=== PATIENT | female | born 1960 | race Caucasian/White ===

== ENCOUNTER → 2017-03-05 | Outpatient (CLI) | payer MEDICAID | END | disposition home or self-care (01) | LOC: CFH 13:54 | PROVIDERS: ATTEND Internal Medicine Critical Care Medicine | DX: J96.11 Chronic respiratory failure with hypoxia (principal); J84.10 Pulmonary fibrosis, unspecified; E07.9 Disorder of thyroid, unspecified; Z90.49 Acquired absence of other specified parts of digestive tract | CPT/HCPCS: 71250 ==

== ENCOUNTER → 2017-07-08 | Outpatient (CLI) | payer MEDICAID ==
[~2017-07-08] MED LIST: REGADENOSON 0.4 MG/5 ML SYRINGE ONE
== END | disposition home or self-care (01) ==
LOC: CVU 10:28
PROVIDERS: ATTEND Internal Medicine Cardiovascular Disease
DX: R07.89 Other chest pain (principal); I51.7 Cardiomegaly; E11.9 Type 2 diabetes mellitus without complications; E78.5 Hyperlipidemia, unspecified; I10 Essential (primary) hypertension; Z87.891 Personal history of nicotine dependence
CPT/HCPCS: 78452; 93017; 93306; A9502; J2785

== ENCOUNTER 2018-03-31 14:19 | Emergency (ER) | payer MEDICAID ==
[~2018-03-31] VITALS: Ht 167.6 cm; Wt 143.7 kg
[2018-03-31 14:35] VITALS: BP 114/57
[2018-03-31] MEDS ORDERED: KETOROLAC 30 MG/1 ML IM ONE (15:00)
[2018-03-31] MEDS ORDERED: KETOROLAC 30 MG/1 ML ONE (15:27)
== END 2018-03-31 15:36 | disposition home or self-care (01) ==
LOC: ED 15:25
DX: M77.9 Enthesopathy, unspecified (principal); J44.9 Chronic obstructive pulmonary disease, unspecified; E11.9 Type 2 diabetes mellitus without complications
CPT/HCPCS: 29125; 73130; 96372; 99284; J1885

== ENCOUNTER → 2018-09-29 | Outpatient (CLI) | payer MEDICAID | END | disposition home or self-care (01) | LOC: CFH 11:35 | PROVIDERS: ATTEND Nurse Practitioner Family | DX: Z12.2 Encounter for screening for malignant neoplasm of respiratory organs (principal); J44.9 Chronic obstructive pulmonary disease, unspecified; F17.200 Nicotine dependence, unspecified, uncomplicated | CPT/HCPCS: G0297 ==

== ENCOUNTER 2019-06-28 06:59 | Emergency (ER) | payer MEDICAID ==
[~2019-06-28] VITALS: Ht 167.6 cm; Wt 119.8 kg
[2019-06-28 07:19] VITALS: BP 128/86
[2019-06-28 08:07] LABS: RAPID INFLUENZA A Negative (Negative); RAPID INFLUENZA B Negative (Negative)
[2019-06-28] MEDS ORDERED: ACETAMINOPHEN 500 MG TABLET PO ONE (08:30)
[2019-06-28 08:38] LABS: BASOPHILS # (AUTO) 0.01 x10^3/uL (0-0.1); BASOPHILS % (AUTO) 0 % (0-1); EOSINOPHILS # (AUTO) 0.04 x10^3/uL (0-0.4); EOSINOPHILS % (AUTO) 0 % (1-7); LYMPHOCYTES # (AUTO) 0.71 x10^3/uL (1-3.4); LYMPHOCYTES % (AUTO) 8 % (22-44); MD NO; MEAN CORPUSCULAR HEMOGLOBIN 32.4 pg (27.0-34.8); MEAN CORPUSCULAR HGB CONC 33.3 g/dL (32.4-35.8); MEAN CORPUSCULAR VOLUME 97.4 fL (80-100); MEAN PLATELET VOLUME 7.7 fL (7.4-10.4); MONOCYTES # (AUTO) 0.66 x10^3/uL (0.2-0.8); MONOCYTES % (AUTO) 7 % (2-9); NEUTROPHILS # (AUTO) 8.04 x10^3/uL (1.8-6.8); NEUTROPHILS % (AUTO) 85 % (42-75); PLATELET COUNT 174 x10^3/uL (130-400); RED BLOOD COUNT 4.37 x10^6/uL (3.82-5.3); RED CELL DISTRIBUTION WIDTH 14.1 % (9.6-15.2)
[2019-06-28] MEDS ORDERED: ACETAMINOPHEN 500 MG TABLET ONE (08:39)
[2019-06-28] MEDS ORDERED: AZITHROMYCIN 500 MG TABLET ONE (08:45)
[2019-06-28] MEDS ORDERED: CEFTRIAXONE 1,000 MG ONE (08:46)
[2019-06-28 08:47] LABS: ALBUMIN 3.3 g/dL (3.4-5.0); ANION GAP 8 mmol/L (5-15); CALCIUM 8.7 mg/dL (8.5-10.1); CHLORIDE 103 mmol/L (98-107)
[2019-06-28] MEDS ORDERED: CEFTRIAXONE 1,000 MG IM ONE (09:00)
[2019-06-28] MEDS ORDERED: AZITHROMYCIN 500 MG TABLET PO ONE (09:00)
[2019-06-28] MEDS ORDERED: ALBUTEROL/IPRATROPIUM 2.5MG/0.5MG, 3 ML ONE (09:16)
[2019-06-28] MEDS: ALBUTEROL/IPRATROPIUM 2.5MG/0.5MG, 3 ML NPPB SCH ×2 (09:18→09:19)
== END 2019-06-28 11:09 | disposition home or self-care (01) ==
LOC: ED 09:38
DX: J44.1 Chronic obstructive pulmonary disease with (acute) exacerbation (principal); J15.9 Unspecified bacterial pneumonia; M25.561 Pain in right knee; R50.9 Fever, unspecified; F17.210 Nicotine dependence, cigarettes, uncomplicated
CPT/HCPCS: 29505; 36415; 71046; 73564; 80048; 82040; 83605; 85025; 87400; 94640; 96372; 96374; 99284; J0696; J7620

== ENCOUNTER 2019-12-19 13:10 | Inpatient (IN) | payer MEDICAID ==
[~2019-12-19] VITALS: Ht 170.2 cm; Wt 128.7 kg
--- NOTE | 2019-12-19 13:40 | NUR ---
THIS RN AT BEDSIDE WITH MD FOR PT ASSESSMENT.
--- NOTE | 2019-12-19 13:58 | NUR ---
PIV PLACED, LABS AND 1 SET BLOOD CX DRAWN AND COLLECTED BY MANAGER PET. SECOND SET BLOOD CX COLLECTED BY MANAGER PET.
[2019-12-19] MEDS ORDERED: PIPERACILLIN/TAZO/PMX 3.375GM 50 ML ONE (13:59)
[2019-12-19] MEDS ORDERED: VANCOMYCIN PER PHARMACY MC ONE (14:00)
[2019-12-19] MEDS ORDERED: SODIUM CHLORIDE FLUSH 10ML SYR IVF ONE (14:00)
[2019-12-19] MEDS ORDERED: PIPERACILLIN/TAZO/PMX 3.375GM 50 ML IVPB ONE (14:00)
--- NOTE | 2019-12-19 14:02 | NUR ---
IV ABX ADMIN PER JUL. 2 SETS BLOOD CX COLLECTED PRIOR TO START.
[2019-12-19 14:13] LABS: BASOPHILS # (AUTO) 0.03 x10^3/uL (0-0.1); BASOPHILS % (AUTO) 0 % (0-1); EOSINOPHILS # (AUTO) 0.06 x10^3/uL (0-0.4); EOSINOPHILS % (AUTO) 1 % (1-7); LYMPHOCYTES # (AUTO) 1.51 x10^3/uL (1-3.4); LYMPHOCYTES % (AUTO) 19 % (22-44); MD NO; MEAN CORPUSCULAR HEMOGLOBIN 32.6 pg (27.0-34.8); MEAN CORPUSCULAR HGB CONC 33.6 g/dL (32.4-35.8); MEAN CORPUSCULAR VOLUME 97.1 fL (80-100); MEAN PLATELET VOLUME 8.1 fL (7.4-10.4); MONOCYTES # (AUTO) 0.54 x10^3/uL (0.2-0.8); MONOCYTES % (AUTO) 7 % (2-9); NEUTROPHILS # (AUTO) 5.61 x10^3/uL (1.8-6.8); NEUTROPHILS % (AUTO) 72 % (42-75); PLATELET COUNT 199 x10^3/uL (130-400); RED BLOOD COUNT 3.74 x10^6/uL (3.82-5.3); RED CELL DISTRIBUTION WIDTH 14.5 % (9.6-15.2)
--- NOTE | 2019-12-19 14:13 | NUR ---
US AT BEDSIDE.
[2019-12-19 14:20] LABS: ALBUMIN 3.4 g/dL (3.4-5.0); ANION GAP 4 mmol/L (5-15); CALCIUM 8.7 mg/dL (8.5-10.1); CHLORIDE 107 mmol/L (98-107); CREATININE 0.65 mg/dL (0.55-1.02)
[2019-12-19] MEDS ORDERED: VANCOMYCIN 2,500 MG in SODIUM CHLORIDE 0.9% 500 ML IV ONE (14:30)
--- NOTE | 2019-12-19 14:49 | NUR ---
DERIK STARTED PER JUL. PT RESTING COMFORTABLY ON GURNEY WATCHING TV. NADN. PT REFUSES BLANKET AT THIS TIME.
--- NOTE | 2019-12-19 15:04 | NUR ---
MD AT BEDSIDE TO UPDATE PT ON POC.
[2019-12-19] MEDS ORDERED: METF500T17 PO (15:16)
[2019-12-19] MEDS ORDERED: ESCI10TA PO (15:16)
[2019-12-19] MEDS ORDERED: ATORVASTATIN (15:16)
[2019-12-19] MEDS ORDERED: TRAZ150T62 PO (15:16)
[2019-12-19] MEDS ORDERED: ALPR0.25 PO (15:16)
--- NOTE | 2019-12-19 15:18 | NUR ---
HOSPITALIST AT BEDSIDE.
[2019-12-19] MEDS ORDERED: TRAZODONE 150MG TABLET PO PRN (15:30)
[2019-12-19] MEDS ORDERED: PIPERACILLIN/TAZO/PMX 3.375GM 50 ML IV SCH (15:30)
[2019-12-19] MEDS ORDERED: BUPROPION 100 MG TABLET PO SCH ×2 (15:30)
[2019-12-19] MEDS ORDERED: SODIUM CHLORIDE FLUSH 10ML SYR IVF PRN (15:30)
--- NOTE | 2019-12-19 15:37 | NUR ---
RELEASE SIGNED TO OBTAIN MED RECORDS FROM [employer] AND GIVEN TO CAR RIDER TO FAX REQUEST.
[2019-12-19] MEDS ORDERED: POLYETHYLENE GLYCOL 17 GM PACKET PO PRN (16:00)
[2019-12-19] MEDS ORDERED: BISACODYL 10 MG SUPP PR PRN (16:00)
[2019-12-19] MEDS ORDERED: VANCOMYCIN PER PHARMACY MC PRN (16:00)
[2019-12-19] MEDS: NICOTINE 7 MG/24 HR PATCH.TD24 TD SCH (16:00)
[2019-12-19] MEDS ORDERED: morphine SULFATE 10 MG/ML, 1ML IVPush PRN (16:00)
[2019-12-19] MEDS: LACTOBACILLUS CHEW TABLET PO SCH ×2 (16:00→20:21)
[2019-12-19] MEDS ORDERED: ONDANSETRON 2MG/ML, 2ML IVPush PRN (16:00)
[2019-12-19] MEDS: INSULIN LISPRO 100 UNITS/ML, PEN SQ-INSULIN SCH ×2 (16:00→20:20)
[2019-12-19] MEDS ORDERED: MELATONIN 5 MG TABLET PO PRN (16:00)
[2019-12-19] MEDS ORDERED: HYDROcodone/APAP 5/325 TABLET PO PRN (16:00)
[2019-12-19] MEDS ORDERED: ACETAMINOPHEN 325 MG TABLET PO PRN (16:00)
--- NOTE | 2019-12-19 16:08 | NUR ---
RECEIVED MEDICAL RECORDS, DATABASE REPORT WRITER PLACED FAX IN CHART. REDDENNED AREA OUTLINED ON LEFT BREAST.
--- NOTE | 2019-12-19 17:30 | NUR ---
REPORT GIVEN TO NAT BILLINGSLEY.
[2019-12-19 18:06] VITALS: BP 124/75
[2019-12-19] MEDS ORDERED: PHARMACOKINETIC CONSULTATION MC ONE (19:30)
[2019-12-19] MEDS ORDERED: PHARMACOKINETIC MONITORING MC PRN (19:30)
[2019-12-19] MEDS: ENOXAPARIN 40 MG/0.4 ML SQ SCH (19:51)
[2019-12-19] MEDS: AMPICILLIN/SULBACTAM 3 GM in SODIUM CHLORIDE 0.9% 100 ML IV SCH (19:52)
[2019-12-19] MEDS: metFORMIN 500 MG TABLET PO SCH (20:21)
[2019-12-19] MEDS: ATORVASTATIN 20 MG TABLET PO SCH (20:21)
[2019-12-19] MEDS: LORazepam 0.5MG TABLET PO PRN (20:21)
[2019-12-19] MEDS: VARENICLINE 1MG TABLET PO SCH (21:54)
[2019-12-20 01:22] VITALS: BP 138/82
[2019-12-20] MEDS: AMPICILLIN/SULBACTAM 3 GM in SODIUM CHLORIDE 0.9% 100 ML IV SCH ×3 (04:17→20:07)
[2019-12-20 04:31] LABS: BASOPHILS # (AUTO) 0.03 x10^3/uL (0-0.1); BASOPHILS % (AUTO) 0 % (0-1); EOSINOPHILS # (AUTO) 0.08 x10^3/uL (0-0.4); EOSINOPHILS % (AUTO) 1 % (1-7); LYMPHOCYTES # (AUTO) 1.35 x10^3/uL (1-3.4); LYMPHOCYTES % (AUTO) 19 % (22-44); MD NO; MEAN CORPUSCULAR HEMOGLOBIN 32.1 pg (27.0-34.8); MEAN CORPUSCULAR HGB CONC 32.8 g/dL (32.4-35.8); MEAN CORPUSCULAR VOLUME 98.1 fL (80-100); MEAN PLATELET VOLUME 8.1 fL (7.4-10.4); MONOCYTES # (AUTO) 0.65 x10^3/uL (0.2-0.8); MONOCYTES % (AUTO) 9 % (2-9); NEUTROPHILS % (AUTO) 71 % (42-75); PLATELET COUNT 179 x10^3/uL (130-400); RED BLOOD COUNT 3.58 x10^6/uL (3.82-5.3); RED CELL DISTRIBUTION WIDTH 14.8 % (9.6-15.2)
[2019-12-20 04:40] LABS: ANION GAP 4 mmol/L (5-15); CALCIUM 8.8 mg/dL (8.5-10.1); CHLORIDE 108 mmol/L (98-107)
[2019-12-20] MEDS: LACTOBACILLUS CHEW TABLET PO SCH ×4 (05:51→20:33)
[2019-12-20 07:41] VITALS: BP 117/80
[2019-12-20] MEDS: INSULIN LISPRO 100 UNITS/ML, PEN SQ-INSULIN SCH ×4 (08:18→21:00)
[2019-12-20] MEDS: ESCITALOPRAM 10MG TABLET PO SCH (08:32)
[2019-12-20] MEDS: VANCOMYCIN 2,500 MG in SODIUM CHLORIDE 0.9% 500 ML IV SCH (08:32)
[2019-12-20] MEDS: BUPROPION 100 MG TABLET PO SCH (08:33)
[2019-12-20] MEDS: VARENICLINE 1MG TABLET PO SCH ×2 (08:33→21:27)
[2019-12-20] MEDS: SENNA/DOCUSATE TABLET PO SCH (08:57)
[2019-12-20 12:10] VITALS: BP 116/80
[2019-12-20] MEDS: NICOTINE 7 MG/24 HR PATCH.TD24 TD SCH (16:37)
[2019-12-20] MEDS: ENOXAPARIN 40 MG/0.4 ML SQ SCH (16:38)
[2019-12-20] MEDS: ATORVASTATIN 20 MG TABLET PO SCH (20:33)
[2019-12-20] MEDS: metFORMIN 500 MG TABLET PO SCH (20:34)
[2019-12-20 20:38] VITALS: BP 129/80
[2019-12-21 01:38] VITALS: BP 115/75
[2019-12-21] MEDS: VANCOMYCIN 2,500 MG in SODIUM CHLORIDE 0.9% 500 ML IV SCH (01:54)
[2019-12-21] MEDS: AMPICILLIN/SULBACTAM 3 GM in SODIUM CHLORIDE 0.9% 100 ML IV SCH ×3 (04:38→19:53)
[2019-12-21 05:47] LABS: BASOPHILS # (AUTO) 0.03 x10^3/uL (0-0.1); BASOPHILS % (AUTO) 1 % (0-1); EOSINOPHILS # (AUTO) 0.06 x10^3/uL (0-0.4); EOSINOPHILS % (AUTO) 1 % (1-7); LYMPHOCYTES # (AUTO) 1.45 x10^3/uL (1-3.4); LYMPHOCYTES % (AUTO) 23 % (22-44); MD NO; MEAN CORPUSCULAR HEMOGLOBIN 32.1 pg (27.0-34.8); MEAN CORPUSCULAR HGB CONC 33.1 g/dL (32.4-35.8); MEAN CORPUSCULAR VOLUME 97.2 fL (80-100); MEAN PLATELET VOLUME 7.8 fL (7.4-10.4); MONOCYTES # (AUTO) 0.38 x10^3/uL (0.2-0.8); MONOCYTES % (AUTO) 6 % (2-9); NEUTROPHILS # (AUTO) 4.49 x10^3/uL (1.8-6.8); NEUTROPHILS % (AUTO) 70 % (42-75); PLATELET COUNT 184 x10^3/uL (130-400); RED BLOOD COUNT 3.73 x10^6/uL (3.82-5.3); RED CELL DISTRIBUTION WIDTH 14.7 % (9.6-15.2)
[2019-12-21] MEDS: LACTOBACILLUS CHEW TABLET PO SCH ×4 (06:06→21:07)
[2019-12-21] MEDS: INSULIN LISPRO 100 UNITS/ML, PEN SQ-INSULIN SCH ×4 (07:00→21:00)
[2019-12-21] MEDS: BUPROPION 100 MG TABLET PO SCH (07:33)
[2019-12-21] MEDS: ESCITALOPRAM 10MG TABLET PO SCH (07:33)
[2019-12-21] MEDS: VARENICLINE 1MG TABLET PO SCH ×2 (07:34→21:08)
[2019-12-21] MEDS: SENNA/DOCUSATE TABLET PO SCH (07:34)
[2019-12-21 07:58] VITALS: BP 124/78
[2019-12-21 13:47] VITALS: BP 118/75
[2019-12-21] MEDS: ENOXAPARIN 40 MG/0.4 ML SQ SCH (15:47)
[2019-12-21] MEDS: NICOTINE 7 MG/24 HR PATCH.TD24 TD SCH (16:00)
[2019-12-21 19:24] VITALS: BP 124/80
[2019-12-21] MEDS ORDERED: VANCOMYCIN 2,500 MG in SODIUM CHLORIDE 0.9% 500 ML IV SCH (20:00)
[2019-12-21] MEDS: metFORMIN 500 MG TABLET PO SCH (21:08)
[2019-12-21] MEDS: LORazepam 0.5MG TABLET PO PRN (21:08)
[2019-12-21] MEDS: ATORVASTATIN 20 MG TABLET PO SCH (21:08)
[2019-12-22 00:39] VITALS: BP 124/78
[2019-12-22] MEDS: AMPICILLIN/SULBACTAM 3 GM in SODIUM CHLORIDE 0.9% 100 ML IV SCH (04:09)
[2019-12-22] MEDS: LACTOBACILLUS CHEW TABLET PO SCH ×2 (05:01→11:04)
[2019-12-22] MEDS: INSULIN LISPRO 100 UNITS/ML, PEN SQ-INSULIN SCH ×2 (07:00→11:00)
[2019-12-22 07:50] VITALS: BP 132/80
[2019-12-22] MEDS: SENNA/DOCUSATE TABLET PO SCH (07:59)
[2019-12-22] MEDS: BUPROPION 100 MG TABLET PO SCH (07:59)
[2019-12-22] MEDS: VARENICLINE 1MG TABLET PO SCH (07:59)
[2019-12-22] MEDS: ESCITALOPRAM 10MG TABLET PO SCH (07:59)
[2019-12-22] MEDS ORDERED: DOXYCYCLINE 100MG CAP PO SCH (08:00)
[2019-12-22] MEDS ORDERED: AMOXICILLIN/CLAV 875-125MG TABLET PO SCH (08:00)
[2019-12-22] MEDS ORDERED: ACID1TAB7 PO (10:20)
[2019-12-22] MEDS ORDERED: AMOX1TAB12 PO (10:20)
[2019-12-22] MEDS ORDERED: CLOT45CR VG (10:20)
[2019-12-22] MEDS ORDERED: DOXY100C2 PO (10:20)
[2019-12-22] MEDS ORDERED: ONDA4TAB13 SL (10:20)
[2019-12-22] MEDS ORDERED: FLUC200T PO (10:20)
== END 2019-12-22 11:24 | disposition home or self-care (01) | DRG 600 ==
LOC: ED 14:02 → EDIP 15:06 → 3N 17:38 → DCLOUNGE 12-22 11:18
PROVIDERS: ADMIT Internal Medicine; ATTEND Internal Medicine
DX: N61.1 Abscess of the breast and nipple (principal); L03.313 Cellulitis of chest wall; J96.10 Chronic respiratory failure, unspecified whether with hypoxia or hypercapnia; Z68.41 Body mass index [BMI] 40.0-44.9, adult; J44.9 Chronic obstructive pulmonary disease, unspecified; J30.9 Allergic rhinitis, unspecified; F41.9 Anxiety disorder, unspecified; F17.200 Nicotine dependence, unspecified, uncomplicated; E66.9 Obesity, unspecified; E11.9 Type 2 diabetes mellitus without complications; I25.2 Old myocardial infarction; Z98.84 Bariatric surgery status; Z79.899 Other long term (current) drug therapy
CPT/HCPCS: 36415; 76642; 80048; 82040; 82962; 83036; 83605; 83735; 84145; 85025; 87040; 96365; 96366; 96368; 99285; G0378; J0295; J1650; J2543; J3370; J1815; J7040

== ENCOUNTER → 2020-01-13 | Outpatient (CLI) | payer MEDICAID ==
[~2020-01-13] MED LIST changes: +ACID1TAB7 PO; +ALPR0.25 PO; +AMOX1TAB12 PO; +ATORVASTATIN; +CLOT45CR VG; +DOXY100C2 PO; +ESCI10TA PO; +FLUC200T PO; +METF500T17 PO; +ONDA4TAB13 SL; -REGADENOSON 0.4 MG/5 ML SYRINGE ONE; +TRAZ150T62 PO
== END | disposition home or self-care (01) ==
LOC: CFH 12:13
PROVIDERS: ATTEND Internal Medicine
DX: N61.0 Mastitis without abscess (principal); N63.20 Unspecified lump in the left breast, unspecified quadrant
CPT/HCPCS: 76642; 77066; G0279

== ENCOUNTER 2020-05-29 19:24 | Emergency (ER) | payer MEDICAID ==
[~2020-05-29] VITALS: Ht 170.2 cm; Wt 131.0 kg
[~2020-05-29 19:24] MED LIST changes: -ESCI10TA PO; +ESCI10TA5 PO
--- NOTE | 2020-05-29 19:42 | NUR ---
Patient presents to ER c/o vag bleeding since this am. Patient c/o achiness in low back and feeling like she is "almost going to cramp," but doesn't have actual cramping. Patient states she has a swollen node in her right neck also. Denies fevers. Patient is in NAD. Respirations even and unlabored.
[2020-05-29 20:11] LABS: BASOPHILS % (AUTO) 1 % (0-1); EOSINOPHILS % (AUTO) 1 % (1-7); LYMPHOCYTES % (AUTO) 24 % (22-44); MD NO; MEAN CORPUSCULAR HEMOGLOBIN 32.6 pg (27.0-34.8); MEAN CORPUSCULAR HGB CONC 33.9 g/dL (32.4-35.8); MEAN PLATELET VOLUME 7.6 fL (7.4-10.4); MONOCYTES % (AUTO) 7 % (2-9); NEUTROPHILS % (AUTO) 68 % (42-75); PLATELET COUNT 208 x10^3/uL (130-400); RED BLOOD COUNT 3.84 x10^6/uL (3.82-5.3); RED CELL DISTRIBUTION WIDTH 14.2 % (9.6-15.2)
[2020-05-29 20:22] LABS: MICROSCOPIC AUTO
[2020-05-29 20:23] LABS: ALBUMIN 3.8 g/dL (3.4-5.0); ANION GAP 1 mmol/L (5-15); CHLORIDE 110 mmol/L (98-107); CREATININE 1.12 mg/dL (0.55-1.02)
[2020-05-29 22:00] VITALS: BP 140/58
--- NOTE | 2020-05-29 22:23 | NUR ---
Discharge instructions given. All questions and concerns addressed. Patient ambulatory with a steady gait. Belongings with patient.
== END 2020-05-29 22:26 | disposition home or self-care (01) ==
LOC: ED 21:23
DX: N93.9 Abnormal uterine and vaginal bleeding, unspecified (principal); D25.9 Leiomyoma of uterus, unspecified; I88.9 Nonspecific lymphadenitis, unspecified; N89.8 Other specified noninflammatory disorders of vagina
CPT/HCPCS: 36415; 76830; 80048; 81001; 82040; 84703; 85025; 87086; 99284

== ENCOUNTER → 2020-06-01 | Outpatient (CLI) | payer MEDICAID ==
[~2020-06-01] MED LIST changes: +ATOR20TA37 PO; +BUPR150T7 PO; +FLUT16SP24 NAS; +TIOT4MIS3 INH
== END | disposition home or self-care (01) ==
LOC: STAR 13:28
PROVIDERS: ATTEND Internal Medicine Geriatric Medicine
DX: Z01.812 Encounter for preprocedural laboratory examination (principal); Z20.828 Contact with and (suspected) exposure to other viral communicable diseases; Z86.010 Personal history of colon polyps
CPT/HCPCS: 87635; 93005

== ENCOUNTER 2020-06-07 09:23 | Day surgery (SDC) | payer MEDICAID ==
[~2020-06-07] VITALS: Ht 170.2 cm; Wt 127.7 kg
[2020-06-07 10:10] VITALS: BP 114/71
[2020-06-07] MEDS ORDERED: CHLORHEXIDINE 15 ML UDC MM ONE (10:30)
[2020-06-07] MEDS ORDERED: LACTATED RINGERS 1,000 ML IV SCH (10:30)
[2020-06-07] MEDS ORDERED: FENTANYL PF 100 MCG/2ML ONE (10:55)
[2020-06-07] MEDS ORDERED: PROPOFOL 10 MG/ML, 20ML ONE (11:01)
[2020-06-07] MEDS ORDERED: PHENYLEPHRINE 10 MG/ML ONE (11:01)
[2020-06-07] MEDS ORDERED: ONDANSETRON 2MG/ML, 2ML ONE ×2 (11:01→11:46)
[2020-06-07] MEDS ORDERED: LORazepam 2 MG/ML, 1ML IVPush PRN (11:30)
[2020-06-07] MEDS ORDERED: hydrALAzine 20 MG/ML, 1ML IV PRN (11:30)
[2020-06-07] MEDS ORDERED: EPHEDRINE 50 MG/ML, 1ML IVPush PRN (11:30)
[2020-06-07] MEDS ORDERED: HYDROmorphone 1 MG/ML, 1ML INJ IVPush PRN (11:30)
[2020-06-07] MEDS ORDERED: HALOPERIDOL 5 MG/ML IV PRN (11:30)
[2020-06-07] MEDS ORDERED: ACETAMINOPHEN 325 MG TABLET PO PRN (11:30)
[2020-06-07] MEDS ORDERED: ALBUTEROL/IPRATROPIUM 2.5MG/0.5MG, 3 ML NPPB PRN (11:30)
[2020-06-07] MEDS ORDERED: ONDANSETRON 2MG/ML, 2ML IVPush PRN (11:30)
[2020-06-07] MEDS ORDERED: OXYcodone 5 MG/5 ML ORAL.SOL UDC PO PRN (11:30)
[2020-06-07] MEDS ORDERED: FENTANYL PF 100 MCG/2ML IV PRN (11:30)
[2020-06-07] MEDS ORDERED: ALBUTEROL SULFATE 2.5 MG/3 ML NPPB PRN (11:30)
[2020-06-07] MEDS ORDERED: PROMETHAZINE 12.5 MG SUPP PR PRN (11:30)
[2020-06-07] MEDS ORDERED: LABETALOL 5MG/ML, 20ML IV PRN (11:30)
[2020-06-07] MEDS ORDERED: DIPHENHYDRAMINE 50 MG/ML, 1ML IVPush PRN (11:30)
[2020-06-07] MEDS ORDERED: METOPROLOL 1 MG/ML, 5ML IV PRN (11:30)
[2020-06-07] MEDS ORDERED: ACETAMINOPHEN 325 MG TABLET ONE (11:51)
== END 2020-06-07 12:40 | disposition home or self-care (01) ==
LOC: OUT 09:23
PROVIDERS: ATTEND Internal Medicine Geriatric Medicine
DX: Z12.11 Encounter for screening for malignant neoplasm of colon (principal); D12.2 Benign neoplasm of ascending colon; D12.3 Benign neoplasm of transverse colon; K57.30 Diverticulosis of large intestine without perforation or abscess without bleeding; E11.9 Type 2 diabetes mellitus without complications; I10 Essential (primary) hypertension; J44.9 Chronic obstructive pulmonary disease, unspecified; F41.9 Anxiety disorder, unspecified; F32.9 Major depressive disorder, single episode, unspecified; E78.5 Hyperlipidemia, unspecified; I25.2 Old myocardial infarction; E66.01 Morbid (severe) obesity due to excess calories; Z68.42 Body mass index [BMI] 45.0-49.9, adult; Z79.899 Other long term (current) drug therapy; Z86.010 Personal history of colon polyps; Z99.81 Dependence on supplemental oxygen
CPT/HCPCS: 45380; 82962; 88305; J2370; J2405; J2704; J3010; J7120

== ENCOUNTER → 2020-08-23 | Outpatient (CLI) | payer MEDICAID ==
[~2020-08-23] MED LIST changes: +BUPR150T22 PO; -BUPR150T7 PO; -ESCI10TA5 PO; +ESCI10TA97 PO; +OMEP20CA20 PO; +SULF1TAB24 PO; +TRAZ-96 PO
[2020-08-23 14:08] LABS: ALANINE AMINOTRANSFERASE 31 U/L (12-78); ALBUMIN 4.2 g/dL (3.4-5.0); ANION GAP 2 mmol/L (5-15); CALCIUM 9.3 mg/dL (8.5-10.1); CHLORIDE 107 mmol/L (98-107); CREATININE 0.83 mg/dL (0.55-1.02)
[2020-08-23 14:10] LABS: ALKALINE PHOSPHATASE 64 U/L (45-117); BILIRUBIN,TOTAL 0.3 mg/dL (0.2-1.0); TOTAL PROTEIN 7.8 g/dL (6.4-8.2)
== END | disposition home or self-care (01) ==
LOC: STAR 12:40
PROVIDERS: ATTEND Obstetrics & Gynecology Female Pelvic Medicine and Reconstructive Surgery
DX: Z01.818 Encounter for other preprocedural examination (principal); R10.2 Pelvic and perineal pain; N81.10 Cystocele, unspecified; N95.0 Postmenopausal bleeding; N39.3 Stress incontinence (female) (male); N84.0 Polyp of corpus uteri
CPT/HCPCS: 36415; 80053; 93005

== ENCOUNTER → 2020-09-26 | Outpatient (CLI) | payer MEDICAID ==
[~2020-09-26] MED LIST changes: +SULF-23 PO; -SULF1TAB24 PO
== END | disposition home or self-care (01) ==
LOC: CFH 11:37
PROVIDERS: ATTEND Nurse Practitioner Family
DX: Z12.2 Encounter for screening for malignant neoplasm of respiratory organs (principal); J98.11 Atelectasis; J47.9 Bronchiectasis, uncomplicated; J84.10 Pulmonary fibrosis, unspecified; F17.211 Nicotine dependence, cigarettes, in remission
CPT/HCPCS: 71271

== ENCOUNTER → 2020-11-22 | Outpatient (CLI) | payer MEDICAID ==
[~2020-11-22] MED LIST changes: +TRAZ50TA66 PO
[2020-11-22 11:33] LABS: ALBUMIN 3.8 g/dL (3.4-5.0); ANION GAP 2 mmol/L (5-15); CALCIUM 9.1 mg/dL (8.5-10.1); CHLORIDE 108 mmol/L (98-107)
[2020-11-22 11:37] LABS: ALANINE AMINOTRANSFERASE 61 U/L (12-78); ALKALINE PHOSPHATASE 72 U/L (45-117); BILIRUBIN,TOTAL 0.3 mg/dL (0.2-1.0); CREATININE 0.58 mg/dL (0.55-1.02); TOTAL PROTEIN 7.2 g/dL (6.4-8.2)
== END | disposition home or self-care (01) ==
LOC: STAR 10:07
PROVIDERS: ATTEND Obstetrics & Gynecology Female Pelvic Medicine and Reconstructive Surgery
DX: Z01.812 Encounter for preprocedural laboratory examination (principal); Z20.822 Contact with and (suspected) exposure to COVID-19; I44.0 Atrioventricular block, first degree
CPT/HCPCS: 36415; 80053; 93005; U0003; U0005

== ENCOUNTER 2020-11-28 05:39 | Day surgery (SDC) | payer MEDICAID ==
[~2020-11-28] VITALS: Ht 170.2 cm; Wt 116.5 kg
[2020-11-28] MEDS ORDERED: CHLORHEXIDINE 15 ML UDC ONE (06:18)
[2020-11-28 06:29] VITALS: BP 119/87
[2020-11-28] MEDS ORDERED: CHLORHEXIDINE 15 ML UDC PO ONE (06:30)
[2020-11-28] MEDS ORDERED: LACTATED RINGERS 1,000 ML IV SCH (06:30)
[2020-11-28] MEDS ORDERED: BUPIVACAINE/PF 0.25% ONE (06:45)
[2020-11-28] MEDS ORDERED: EPINEPHRINE 1 MG/ML, 1ML ONE (06:45)
[2020-11-28] MEDS ORDERED: VANCOMYCIN 500 MG ONE (06:45)
[2020-11-28] MEDS ORDERED: GENTAMICIN 80 MG/2 ML ONE (06:45)
[2020-11-28] MEDS ORDERED: FENTANYL PF 250 MCG/5ML ONE (07:04)
[2020-11-28] MEDS ORDERED: MIDAZOLAM 1 MG/ML, 2ML ONE (07:04)
[2020-11-28] MEDS ORDERED: ONDANSETRON 2MG/ML, 2ML ONE (07:32)
[2020-11-28] MEDS ORDERED: SUGAMMADEX 200 MG/2 ML IVPush ONE (07:32)
[2020-11-28] MEDS ORDERED: KETOROLAC 30 MG/1 ML ONE (07:32)
[2020-11-28] MEDS ORDERED: SUCCINYLCHOLINE 20 MG/ML, 10ML ONE (07:32)
[2020-11-28] MEDS ORDERED: CEFAZOLIN 1,000 MG ONE (07:32)
[2020-11-28] MEDS ORDERED: ROCURONIUM 10 MG/ML,10ML ONE (07:32)
[2020-11-28] MEDS ORDERED: GLYCOPYRROLATE 0.2MG/1ML, 5ML ONE (07:32)
[2020-11-28] MEDS ORDERED: DEXAMETHASONE 4 MG/ML, 1ML ONE (07:32)
[2020-11-28] MEDS ORDERED: PROPOFOL 10 MG/ML, 20ML ONE (07:32)
[2020-11-28] MEDS ORDERED: FENTANYL PF 100 MCG/2ML ONE ×4 (08:14→10:02)
[2020-11-28] MEDS ORDERED: OXYcodone 5 MG/5 ML ORAL.SOL UDC PO PRN (08:30)
[2020-11-28] MEDS ORDERED: HYDROmorphone 1 MG/ML, 1ML INJ IVPush PRN (08:30)
[2020-11-28] MEDS ORDERED: PROMETHAZINE 25 MG/ML, 1ML IVPush PRN (08:30)
[2020-11-28] MEDS ORDERED: ALBUTEROL SULFATE 2.5 MG/3 ML NPPB PRN (08:30)
[2020-11-28] MEDS ORDERED: ALBUTEROL/IPRATROPIUM 2.5MG/0.5MG, 3 ML NPPB PRN (08:30)
[2020-11-28] MEDS ORDERED: hydrALAzine 20 MG/ML, 1ML IV PRN (08:30)
[2020-11-28] MEDS ORDERED: ACETAMINOPHEN 325 MG TABLET PO PRN (08:30)
[2020-11-28] MEDS ORDERED: LABETALOL 5MG/ML, 20ML IV PRN (08:30)
[2020-11-28] MEDS ORDERED: MEPERIDINE/PF 25MG/0.5ML IVPush PRN (08:30)
[2020-11-28] MEDS ORDERED: ONDANSETRON 2MG/ML, 2ML IVPush PRN (08:30)
[2020-11-28] MEDS ORDERED: PROMETHAZINE 25 MG/ML, 1ML ONE (09:29)
[2020-11-28] MEDS: FENTANYL PF 100 MCG/2ML IV PRN ×2 (10:00→10:30)
[2020-11-28] MEDS ORDERED: ACETAMINOPHEN 650 MG/20.3 ML UDC ONE (10:03)
[2020-11-28] MEDS ORDERED: OXYcodone 5 MG/5 ML ORAL.SOL UDC ONE (10:03)
== END 2020-11-28 12:55 | disposition home or self-care (01) ==
LOC: OR 05:39
PROVIDERS: ATTEND Obstetrics & Gynecology Female Pelvic Medicine and Reconstructive Surgery
DX: N95.0 Postmenopausal bleeding (principal); N84.0 Polyp of corpus uteri; D25.2 Subserosal leiomyoma of uterus; N88.8 Other specified noninflammatory disorders of cervix uteri; N83.312 Acquired atrophy of left ovary; N83.311 Acquired atrophy of right ovary; N81.11 Cystocele, midline; N81.5 Vaginal enterocele; N81.6 Rectocele; N81.89 Other female genital prolapse; N39.46 Mixed incontinence; G43.909 Migraine, unspecified, not intractable, without status migrainosus; J44.9 Chronic obstructive pulmonary disease, unspecified; E11.9 Type 2 diabetes mellitus without complications; Z79.84 Long term (current) use of oral hypoglycemic drugs; Z79.899 Other long term (current) drug therapy; Z90.49 Acquired absence of other specified parts of digestive tract; Z98.84 Bariatric surgery status; Z99.81 Dependence on supplemental oxygen
CPT/HCPCS: 57265; 57282; 57288; 58552; 82962; 88307; 88311; C1771; J0171; J0330; J0690; J1100; J1170; J1580; J1885; J2250; J2405; J2550; J2704; J3010; J3370; J7120

== ENCOUNTER 2021-01-11 13:47 | Outpatient (CLI) | payer MEDICAID | END 2021-01-11 23:59 | disposition home or self-care (01) | LOC: CFH 13:47 | PROVIDERS: ATTEND Nurse Practitioner Family | DX: Z12.2 Encounter for screening for malignant neoplasm of respiratory organs (principal); F17.211 Nicotine dependence, cigarettes, in remission; J98.4 Other disorders of lung; E04.9 Nontoxic goiter, unspecified; J98.11 Atelectasis; M51.34 Other intervertebral disc degeneration, thoracic region; I70.0 Atherosclerosis of aorta | CPT/HCPCS: 71271 ==

== ENCOUNTER 2021-01-16 09:50 | Outpatient (CLI) | payer MEDICAID ==
[~2021-01-16 09:50] MED LIST changes: -DOXY100C2 PO; +DOXY100C5 PO
== END 2021-01-16 23:59 | disposition home or self-care (01) ==
LOC: CFH 09:50
PROVIDERS: ATTEND Internal Medicine
DX: Z12.31 Encounter for screening mammogram for malignant neoplasm of breast (principal)
CPT/HCPCS: 77063; 77067